=== PATIENT | female | born 1980 | race Caucasian/White ===

== ENCOUNTER 2021-09-12 02:24 | Emergency (ER) | payer MEDICAID, OTHER ==
[~2021-09-12] VITALS: Ht 154.9 cm; Wt 40.9 kg
[2021-09-12] MEDS ORDERED: ALPR1TAB7 PO (02:32)
[2021-09-12] MEDS ORDERED: LEVO150 PO (02:32)
[2021-09-12] MEDS ORDERED: PRED10 PO (02:32)
[2021-09-12] MEDS ORDERED: OXYC10TA59 PO (02:32)
[2021-09-12 03:42] VITALS: BP 138/82
[2021-09-12 04:18] LABS: COVID AG,FIA SOURCE NASOPHARYNGEAL
== END 2021-09-12 04:07 | disposition home or self-care (01) ==
LOC: EMS 02:26
DX: F32.A Depression, unspecified (principal); F43.9 Reaction to severe stress, unspecified; Z20.822 Contact with and (suspected) exposure to COVID-19
CPT/HCPCS: 87426; 99284; C9803; Z7502